=== PATIENT | female | born 1945 | race Caucasian/White ===

== ENCOUNTER → 2018-01-20 | Outpatient (CLI) | payer MEDICARE, BC ==
[~2018-01-20] MED LIST: BUTRANS1 EAC1 TRANSDERM; BUTRANS1 EAC2 TRANSDERM; BUTRANS1 EAC3 TRANSDERM; DULOXETINE HCL60 MG PO; LOSARTAN POTAS100 MG PO; MEDROLDOSEPACK PO; NORVASC5 MG PO; ZANAFLEX2 MG PO; ZANTAC 150MG T150 MG PO; ZOCOR20 MG PO
--- NOTE | 2018-01-22 09:51 | PAINCON ---
[address] [address] PAIN MANAGEMENT CONSULTATION Name: ROC ARMANDO Room: [facility] SITA Church#: [id number] Admission: 01/20/18 Attend Phys: Jessica Leggett Discharge: Date of : 43 Report #: [id number] THIS REPORT FOR: //name// CC: FAM unknown Forrest Marino DATE OF SERVICE: 01/20/2018 The patient is a 72-year-old female being treated for symptomatic lumbar radiculopathy, axial back pain, status post left hip fusion in childhood, requiring complex medication management. 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 Last seen in the pain clinic 09/09/2017, increased her Butrans from 5 to 7.5 mcg. The patient returns to pain clinic today. She speaks primarily Kiswahili, though she understands some. Her speaks a little better Yakut, but they are seen in the company of a case management coordinator. I reviewed that the patient was having improved functional status and pain relief with the increase in Butrans 5-7.5, but still had ongoing pain that was interfering with function. Still ongoing pain in the left hip, which is solidly fused. She has ongoing radicular pain, noting that the caudal injection I had performed 08/12/2017 in retrospect had afforded significant relief and she would like me to repeat an injection to help with the radicular component of pain. PHYSICAL EXAMINATION: Does show 72-year-old female, BMI is 35.7 kilograms per meter squared (4 feet 6 inches, 147 pounds). Blood pressure 142/63, pulse 104, respirations 16. Subjective pain score 7-8 on VAS. Rises from chair using armrest, has an antalgic gait, but again, she has a fused left hip. She does have ongoing lumbar radicular pain in the bilateral legs with some numbness in the left leg down to the foot. Also notes a little subjective paresthesia in the left arm as well, though cervical range of motion is full. She does have diminished patellar and Achilles reflexes on the left. Straight leg raise is nominally positive on left. Diffuse tenderness across the low back. We reviewed the fact that opiate medications are being used to provide analgesia adequate to support activities of daily living, not attempting to achieve a specific pain score on the 0-10 Visual Analog Scale. The current opiate medications are providing sufficient analgesia to allow the patient to participate in activities of daily living. The patient is not exhibiting any aberrant behavior suggestive of drug diversion. The patient is not having any adverse reactions to medications. The patient is not suffering from daytime somnolence or mental acuity changes. The patient is managing opiate-induced constipation with appropriate zwja-avp-bwrvpkg agents and dietary considerations. The patient was counseled on concern for caution with operating a motor vehicle [place] [address] PAIN MANAGEMENT CONSULTATION Name: ROC ARMANDO [facility] [id number] Admission: 01/20/18 Attend Phys: Jessica Leggett Discharge: Date of : 43 Report #: [id number] A physical exam was performed and the patient's functional status was evaluated. All patients with back pain were advised against the bed rest greater than 4 days and were advised to return to normal activities. Pain score assessment was noted and the treatment plan was reviewed with the patient. All current medications, both prescribed and OTC were reviewed and reconciled on the electronic medical record. Tobacco screening was accomplished and smoking cessation was advised when indicated. BMI was noted and diet/exercise modification was recommended for all patients following outside normal parameters. I reviewed with the patient today their responsibilities to safeguard prescription medications, reviewed their responsibility to utilize medications only as prescribed by the physician. They are to seek and receive pain medications only from 1 physician group ( [facility]). They are to use 1 pharmacy and keep the clinic informed if they change pharmacies. Their responsibilities include making followup visits in a timely fashion and to avoid abrupt discontinuation of medication usage. Their responsibilities further include bringing their medications (bottles from the pharmacy with residual pills) to the visit for possible confirmation of pill counts and the patient understands it is their responsibility to submit to random drug screens to ensure both that the medications prescribed are present, and that no other controlled substances are present. All prescriptions provided today were generated electronically. ASSESSMENT: 1. Symptomatic lumbar radiculopathy secondary to spinal stenosis. 2. Chronic axial back pain. 3. Status post left hip fusion in childhood. 4. Status post bilateral total knee arthroplasties. RECOMMENDATION: We will increase Butrans from 7.5 to 10, taken the liberty of writing for 90 day (actually 86 day), 12 Butrans 10 mcg patches). ASSESSMENT: Acute exacerbation of lumbar radiculopathy secondary to spinal stenosis. RECOMMENDATION: Epidural injection under fluoroscopy today at L5-S1. PROCEDURE: Lumbar epidural steroid injection. PROCEDURE NOTE: After both written and informed consent to include risk of spinal cord damage, increased pain, weakness and dural puncture, the patient was taken to the fluoroscopy suite, placed in the prone position. After sterile prep and drape, a skin wheal with lidocaine was raised. A 22-gauge epidural Tuohy needle was inserted in the midline at L5-S1 with good loss to resistance. Negative aspiration for cerebrospinal fluid or blood was noted. Then 1 mL of [facility] [address] [facility] [address] PAIN MANAGEMENT CONSULTATION Name: ROC ARMANDO Room: [facility]#: [id number] Admission: 01/20/18 Attend Phys: Jessica Leggett Discharge: Date of : 43 Report #: [id number] Omnipaque under biplanar fluoroscopy showed good spread within the epidural space. This was followed with 80 mg of triamcinolone plus 1 mL of 1.5% preservative-free Xylocaine, 0.5 mL Xylocaine was then injected to flush the needle; it was removed. The patient was monitored for an appropriate period of time and discharged in good and stable condition. <ELECTRONICALLY SIGNED> By: Forrest Marino DO 01/22/18 0951 [id number] 1925Forrest Marino DO /nt
== END | disposition home or self-care (01) ==
LOC: M.PC 02:28
DX: M54.16 Radiculopathy, lumbar region (principal); M48.061 Spinal stenosis, lumbar region without neurogenic claudication; G89.29 Other chronic pain; Z98.890 Other specified postprocedural states; Z96.653 Presence of artificial knee joint, bilateral; Z79.891 Long term (current) use of opiate analgesic; Z79.899 Other long term (current) drug therapy; Z88.8 Allergy status to other drugs, medicaments and biological substances

== ENCOUNTER → 2018-02-17 | Outpatient (CLI) | payer MEDICARE, BC ==
--- NOTE | 2018-02-18 09:37 | PAINCON ---
[facility] [address] [place] [address] PAIN MANAGEMENT CONSULTATION Name: ROC ARMANDO Room: [facility] SITA Church#: [id number] Admission: 02/17/18 Attend Phys: Jessica Leggett Discharge: Date of : 43 Report #: [id number] THIS REPORT FOR: //name// CC: FAM unknown Forrest Marino DATE OF SERVICE: 02/17/2018 The patient is a delightful 73-year-old female. She speaks primarily Vietnamese. She is seen today in the company of her and a hospice registered nurse. She was last seen in the pain clinic 01/20/2018. We increased her Butrans patch from 7.5 to 10 mcg. I did an epidural injection L5-S1 (she prior had had a caudal epidural injection in 07/2017). Returns to pain clinic today. As we noted, the initial caudal injection afforded only nominal efficacy. Unfortunately, she fell the day after the epidural injection at last visit. She simply fell backwards tripping over her shoe. She did strike her low back. She is unable to tell if she has had much relief with the injection simply because of the increased pain after her fall. She does think that the Butrans patch is working well. She denies any myelopathic symptoms. She has a fused left hip from a childhood surgery. With this, she has a markedly ataxic and antalgic gait. Does have some increased range of motion in the lumbar spine with this gait. Today, she notes subjective pain score is a little bit higher than usual at 8 on VAS, again primarily left low back and in fact "the whole left side of her body." PHYSICAL EXAMINATION: Shows pleasant 4-foot 5-inch, 147-pound female, BMI is approximately 25 kilograms per meter squared. Blood pressure 153/71, pulse 101, respirations are 18, room air oxygen saturation 96%. She is alert and oriented to person, place and time, judged to be a reasonable historian. Rises from chair using armrest, markedly antalgic gait, a little ataxic again due to the frozen left hip. Does have tenderness across the low back. Left leg shows modestly positive straight leg raise. Lower extremity strength is diminished in the left compared to the right, but this is congenital. Diffuse tenderness across the low back. No ecchymosis is noted. ASSESSMENT: Symptomatic lumbar radiculopathy, axial back pain status post fused left hip, chronic pain syndrome requiring complex medication management. RECOMMENDATIONS: Discussion with Mr. Armando and the patient today via the hospice registered nurse. Ultimately, we elected to plan on moving forward with epidural injection at L3-L4 or L4-L5 depending on access at next visit. Pain is a little bit higher in the low back. We will continue Butrans unchanged. Follow up in March for medication renewal, will again think for a 90-day [place] [address] PAIN MANAGEMENT CONSULTATION Name: ROC ARMANDO Jessica Room: [facility] JACOBO Ranjit#: [id number] Admission: 02/17/18 Attend Phys: Jessica Leggett Discharge: Date of : 43 Report #: [id number] consider increasing to a slightly higher Butrans patch at that time if clinically indicated (15 mcg per hour). Discharged in good and stable condition. <ELECTRONICALLY SIGNED> By: Forrest Marino DO 02/18/18 0937 [id number] [id number] Marino DO /nt
== END ==
LOC: M.PC 04:40
DX: M54.16 Radiculopathy, lumbar region (principal); G89.4 Chronic pain syndrome; Z79.899 Other long term (current) drug therapy

== ENCOUNTER → 2018-04-07 | Outpatient (CLI) | payer MEDICARE, BC ==
--- NOTE | 2018-04-08 06:59 | PAINCON ---
[facility] [address] [place] [address] PAIN MANAGEMENT CONSULTATION Name: ROC ARMANDO Room: [facility] SITA Church#: [id number] Admission: 04/07/18 Attend Phys: Jessica Leggett Discharge: Date of : 43 Report #: [id number] THIS REPORT FOR: //name// CC: FAM unknown Forrest Marino The patient is a very pleasant 73-year-old Montenegrin-speaking female being treated for symptomatic lumbar radiculopathy secondary to spinal stenosis. Comorbidities include left hip osteoarthritis affecting bilateral knees. We have tried managing chronic pain with transdermal Butrans patch. I titrated up to 10 mcg with some efficacy, but she is developing a little systemic pruritus. Inspection of the Butrans site is fairly unremarkable. I do not see erythema here. The patient thinks it may be "dry skin." Nonetheless, we have elected to try weaning back to 7.5 mcg patch after 1 more week on the 10 mcg patch. I had prior written a prescription for 90 days (12 Butrans 10 mcg patches). She does have one 7.5 mcg patch left at home. Suggested a trial of 7.5 mcg patch for 1 week. If pain gets worse and/or pruritus is not improved, we will have her go back to 10 mcg patch. If, however, she see some improvement overall, I have taken the liberty of writing for 90 day prescription for Butrans 7.5 mcg patch (#12 distributed), directions 1 every 7 days, obviously a 90-day prescription. The patient has had some incremental relief with epidural injections. Last visit, we talked about repeating epidural injection somewhat above the fairly spondylitic area. Ongoing lumbar radicular pain radiating to the bilateral legs with significant osteoarthritis, we elected to proceed with epidural injection midline at L2-L3. ASSESSMENT: Chronic pain syndrome requiring complex medication management, osteoarthritis affecting left hip and bilateral knees. Medication changes as noted above. PROCEDURE NOTE: Lumbar epidural injection under fluoroscopy. PROCEDURE: Lumbar epidural steroid injection. PROCEDURE NOTE: After both written and informed consent to include risk of spinal cord damage, increased pain, weakness and dural puncture, the patient was taken to the fluoroscopy suite, placed in the prone position. After sterile prep and drape, a skin wheal with lidocaine was raised. A 22-gauge epidural Tuohy needle was inserted in the midline at L2-L3 with good loss to resistance. Negative aspiration for cerebrospinal fluid or blood was noted. Then 1 mL of Omnipaque under biplanar fluoroscopy showed good spread within the epidural space. This was followed with 80 mg of triamcinolone plus 1 mL of 1.5% preservative-free Xylocaine, 0.5 mL Xylocaine was then [place] [address] PAIN MANAGEMENT CONSULTATION Name: ORC ARMANDO Room: [facility] SITA Church#: [id number] Admission: 04/07/18 Attend Phys: Jessica Leggett Discharge: Date of : 43 Report #: [id number] needle; it was removed. The patient was monitored for an appropriate period of time and discharged in good and stable condition. <ELECTRONICALLY SIGNED> By: Forrest Marino DO 04/08/18 0659 1246 [id number] Sum[facility] Countyefrain Marino DO /nt
== END | disposition home or self-care (01) ==
LOC: M.PC 00:34
DX: M54.16 Radiculopathy, lumbar region (principal); G89.4 Chronic pain syndrome; M16.12 Unilateral primary osteoarthritis, left hip; M17.0 Bilateral primary osteoarthritis of knee; Z79.891 Long term (current) use of opiate analgesic; Z98.890 Other specified postprocedural states; Z88.8 Allergy status to other drugs, medicaments and biological substances; Z79.899 Other long term (current) drug therapy

== ENCOUNTER → 2018-05-05 | Outpatient (CLI) | payer MEDICARE, BC ==
--- NOTE | 2018-05-06 07:04 | PAINCON ---
[address] [address] PAIN MANAGEMENT CONSULTATION Name: ROC ARMANDO Room: [facility] Ranjit#: [id number] Admission: 05/05/18 Attend Phys: Jessica Leggett Discharge: Date of : 43 Report #: [id number] THIS REPORT FOR: //name// CC: FAM unknown Forrest Marino The patient is a very pleasant 73-year-old female, seen in pain clinic for axial back pain, lumbar radiculopathy secondary to spinal stenosis, osteoarthritis affecting left hip, bilateral knees. She requires complex medication management. She was seen in pain clinic today. She is seen in the company of her who is supportive and a fiber optics technician. We trialed the Butrans patch at 7.5 mcg, however, was not as effective as a 10 mcg patch. The 10 mcg patch may have exacerbated some mild sedation, but she feels overall she is more functional with the higher dose. Epidural injections were only nominally helpful, in fact last injection at L2-L3 did exacerbate pain for about 24 hours. Currently, she notes subjective pain score as a 3-5 on a VAS. Pain in low back, left side, left knee and primarily entire axial back. PHYSICAL EXAMINATION: GENERAL: Shows a petite 73-year-old female, 4 feet 5 inches tall, 141 pounds, BMI 35 kilograms per meter squared. VITAL SIGNS: Blood pressure 141/88, pulse 102, respirations 18. NEUROLOGIC: She is alert and oriented to person, place and time, judged to be a reasonable historian. Markedly antalgic gait secondary to a surgically fused hip. Diffuse axial tenderness across the low back. LOWER EXTREMITIES: Strength is diminished, but symmetric. Pain in bilateral knees. Does have some osseous hypertrophy in the knees. We reviewed the fact that opiate medications are being used to provide analgesia adequate to support activities of daily living, not attempting to achieve a specific pain score on the 0-10 Visual Analog Scale. The current opiate medications are providing sufficient analgesia to allow the patient to participate in activities of daily living. The patient is not exhibiting any aberrant behavior suggestive of drug diversion. The patient is not having any adverse reactions to medications. The patient is not suffering from daytime somnolence or mental acuity changes. The patient is managing opiate-induced constipation with appropriate ihal-dgo-holbtwh agents and dietary considerations. The patient was counseled on concern for caution with operating a motor vehicle while using opiate medications. A physical exam was performed and the patient's functional status was evaluated. All patients with back pain were advised against the bed rest greater than 4 days and were advised to return to normal activities. Pain score assessment was noted and the treatment plan was reviewed with the patient. All current medications, both prescribed and OTC [place] [address] PAIN MANAGEMENT CONSULTATION Name: ROC ARMANDO [facility] [id number] Admission: 05/05/18 Attend Phys: Jessica Leggett Discharge: Date of : 43 Report #: [id number] electronic medical record. Tobacco screening was accomplished and smoking cessation was advised when indicated. BMI was noted and diet/exercise modification was recommended for all patients following outside normal parameters. I reviewed with the patient today their responsibilities to safeguard prescription medications, reviewed their responsibility to utilize medications only as prescribed by the physician. They are to seek and receive pain medications only from 1 physician group ( [facility]). They are to use 1 pharmacy and keep the clinic informed if they change pharmacies. Their responsibilities include making followup visits in a timely fashion and to avoid abrupt discontinuation of medication usage. Their responsibilities further include bringing their medications (bottles from the pharmacy with residual pills) to the visit for possible confirmation of pill counts and the patient understands it is their responsibility to submit to random drug screens to ensure both that the medications prescribed are present, and that no other controlled substances are present. All prescriptions provided today were generated electronically. ASSESSMENT: Symptomatic chronic axial back pain, history of osteoarthritis affecting left hip, bilateral knees requiring complex medication management. Comorbidity of lumbar spinal stenosis. RECOMMENDATIONS: After discussion with the patient and her via the assembly riveter, we have elected to increase patch back to 10 mcg q.7 days. I have taken the liberty of writing for 12 patches which should equate to 90 (86) day prescription. Follow up in 3 months for reevaluation, earlier if needed. <ELECTRONICALLY SIGNED> By: Forrest Marino DO 05/06/18 0704 1408 [id number] Marino DO /nt
== END ==
LOC: M.PC 04:36
DX: M48.061 Spinal stenosis, lumbar region without neurogenic claudication (principal); M54.16 Radiculopathy, lumbar region; M17.0 Bilateral primary osteoarthritis of knee; M16.12 Unilateral primary osteoarthritis, left hip; Z79.899 Other long term (current) drug therapy

== ENCOUNTER → 2018-06-10 | Outpatient (CLI) | payer MEDICARE, BC ==
--- NOTE | 2018-07-02 17:38 | PAINCON ---
[address] [place] [address] PAIN MANAGEMENT CONSULTATION Name: ROC ARMANDO Room: [facility] SITA Church#: [id number] Admission: 06/10/18 Attend Phys: Anant Blair MD Discharge: Date of : 43 Report #: [id number] THIS REPORT FOR: //name// CC: Anant Siddiqi DATE OF SERVICE: 06/10/2018 The patient does not have a family physician. FOLLOWUP HISTORY: The patient is a 73-year-old female who has been followed in the pain clinic by Dr. Forrest Marino. This is my first visit with the patient. She has complaints of low back pain. The patient states that she did fall on her right knee about 2 weeks ago. She also has some left hip and left knee pain. Left foot is sore as well. She has been very active. She does have some cervical problems as well. The patient has been using Butrans patch, which she feels helps. Rates her pain as 6-7/10. The patient states that she has difficulty taking nonsteroidal anti-inflammatory medications. She has had some GI problems with infections in her stomach. Feels that her pain has been less problematic after injections in the past. At this juncture, she would like to have her medications renewed. She is accompanied by her . There is a lift operator present. She feels that overall use of her current medication is helpful. Epidural injections in the past have been nominally helpful. ALLERGIES: RELAFEN CAUSED HALLUCINATIONS AND TRAMADOL CAUSED VERTIGO. CURRENT MEDICATIONS: Norvasc 5 mg, buprenorphine/Butrans transdermal patch, duloxetine 60 mg, losartan 100 mg, Zantac 150 mg, and Zocor 20 mg. PAST MEDICAL HISTORY: 1. Hypertension. 2. Depression. 3. Lumbar radiculopathy. 4. Component of left sciatic mediated pain. 5. Left hip. 6. Complex medical management. 7. Carpal tunnel syndrome. 8. Degenerative joint disease. 9. Fusion of the joint. 10. GERD. 11. Hyperlipidemia. 12. Prediabetes. 13. Spondylolisthesis. PAST SURGICAL HISTORY: Appendectomy, carpal tunnel release, hip [place], [place] [address] PAIN MANAGEMENT CONSULTATION Name: ROC ARMANDO Room: [facility]#: [id number] Admission: 06/10/18 Attend Phys: Anant Blair MD Discharge: Date of : 43 Report #: [id number] knee replacement, and right nose surgery. REVIEW OF SYSTEMS: Fatigue, weakness, weight change, wears glasses, hearing loss, ringing in the ears, chronic sinus problems, mouth sores, chest pain, angina, shortness of breath when lying flat, loss of appetite, frequent urination, varicose veins, frequent recurrent headaches, lightheadedness, dizziness, numbness, tingling, memory loss, confusion, depression, and anemia. LABORATORY DATA: No new laboratory values are available at the time of our interview. PAIN CLINIC ASSESSMENT: 1. History of osteoarthritis. The patient has had knee replacements, has had some back arthritic changes. 2. Height 5 feet 4 inches. Weight 143 pounds, BMI is 35. 3. Vital signs: Blood pressure 150/57, heart rate 100, respiratory rate 16, room air saturation 97%, and temperature 98.7. 4. Pain intensity /10. 5. Fall risk. The patient did fall about two weeks ago. It was felt that her right knee gave way. 6. Blood thinner. The patient is not on a blood thinning medication. 7. Hypertension. The patient is being treated for hypertension. 8. Opioid therapy greater than 6 weeks. The patient has been receiving medications in the pain clinic. 9. Risk assessment tool. 10. Functional assessment tool. 11. Recreational drug use. 12. Tobacco: The patient denies use of tobacco. 13. Alcohol: The patient denies frequent use of alcoholic beverages. PHYSICAL EXAMINATION: GENERAL: The patient is a well-developed, well-nourished female. She speaks Mohawk. Her is present. A strategic planning specialist is present. HEENT: Normocephalic, atraumatic. Extraocular eye muscles intact. Sclerae nonicteric. Mucous membranes moist. NECK: Good range of motion. MUSCULOSKELETAL: Upper extremity muscle strength is judged to be 4+/5 for the major muscle groups in the upper extremity. The patient has bilateral knee replacements. Notes some pain and discomfort in her left hip, knees, and foot. Status post fall. IMPRESSION: 1. Pain in right knee and low back pain. 2 Hypertension. 3. Depression. 4. [place] [address] PAIN MANAGEMENT CONSULTATION Name: ROC ARMANDO Room: [facility] SITA Church#: [id number] Admission: 06/10/18 Attend Phys: Anant Blair MD Discharge: Date of : 43 Report #: [id number] 5. Component of left sciatic mediated pain. 6. Left hip. 7. Complex medical management. 8. Carpal tunnel syndrome. 9. Degenerative joint disease. 10. Fusion of the joint. 11. Gastroesophageal reflux disease. 12. Hyperlipidemia. 13. Prediabetes. 14. Spondylolisthesis. RECOMMENDATIONS: We discussed treatment options with the patient through her healthcare interpreter. At this juncture, we will continue with her current medical regimen of tizanidine 2 mg p.o. b.i.d. p.r.n., Butrans patch applied every 7 days. The patient will return to the pain clinic as needed. We would like to thank you for letting us participate in her care. We hope she continues to improve. <ELECTRONICALLY SIGNED> By: Anant Blair MD 07/02/18 1738 [id number] [id number]. Armando Blair MD /nt
== END ==
LOC: M.PC 06-03 11:00
DX: M54.16 Radiculopathy, lumbar region (principal); M43.16 Spondylolisthesis, lumbar region; K21.9 Gastro-esophageal reflux disease without esophagitis; E78.5 Hyperlipidemia, unspecified; I10 Essential (primary) hypertension; R73.03 Prediabetes; M25.551 Pain in right hip; F32.9 Major depressive disorder, single episode, unspecified; Z79.899 Other long term (current) drug therapy

== ENCOUNTER → 2018-07-06 | Outpatient (CLI) | payer MEDICARE, BC ==
--- NOTE | 2018-08-09 10:00 | PAINCON ---
[facility] [address] [place] [address] PAIN MANAGEMENT CONSULTATION Name: ROC ARMANDO Room: [facility] SITA AltamiranoBrittaney#: [id number] Admission: 07/06/18 Attend Phys: Anant Blair MD Discharge: Date of : 43 Report #: [id number] THIS REPORT FOR: //name// CC: Anant Siddiqi DATE OF SERVICE: 07/06/2018 CHIEF COMPLAINT: Low back and right knee pain. HISTORY OF PRESENT ILLNESS: The patient is a 73-year-old female who has been followed in the pain clinic. She suffers from chronic low back pain. Also, has had pain in her right knee. She fell a number of weeks ago. She has some pain in her left hip and left knee. Notes that the patient's pain has worsened with the cooler weather. Pain increases as with changes in the weather. She has not fallen in the past month. She does sometimes feel dizzy. She can find that tizanidine is helpful. She takes this medication at night. Feels that there might be a component of dizziness associated with it. Rates her pain as a 6/10. Also, has "pain all over." Overall, feels that her medications are helpful and would like to continue their use. ALLERGIES: RELAFEN CAUSED HALLUCINATIONS AND TRAMADOL CAUSED VERTIGO. PAIN CLINIC ASSESSMENT: 1. History of osteoarthritis. The patient has had knee replacements and has back arthritic changes. 2. Height 5 feet 4 inches, weight 145 pounds, BMI is 36.3. 3. Vital signs: Blood pressure 133/76, heart rate 103, respiratory rate 16, room air saturation 95%, temperature 98.1. 4. Pain score 6/10. 5. Fall risk. The patient has not fallen in the last month. She did fall about a month and a half ago. At that time, she felt like her knee gave way on the right side. The patient uses a walker to ambulate with. 6. Blood thinner. The patient is not on a blood thinning medication. 7. Hypertension. The patient is being treated for hypertension. 8. Opioid therapy greater than 6 weeks. 9. Medications. The patient is receiving medications through the pain clinic. 10. Risk assessment tool. 11. Functional assessment tool. 12. Recreational drug use. The patient denies use of recreational drugs. 13. Tobacco: The patient denies use of tobacco. 14. Alcohol: The patient denies frequent use of alcoholic beverages. PHYSICAL EXAMINATION: GENERAL: The patient is a well-developed, well-nourished female. She speaks primarily Sinhala. She is accompanied by her [place] [address] PAIN MANAGEMENT CONSULTATION Name: ROC ARMANDO Room: [facility] Ranjit#: [id number] Admission: 07/06/18 Attend Phys: Anant Blair MD Discharge: Date of : 43 Report #: [id number] present and translates for us. HEENT: Normocephalic, atraumatic. Extraocular eye muscles intact. Sclerae nonicteric. Mucous membranes are moist. NECK: Reasonable range of motion. MUSCULOSKELETAL: Upper strength judged to be 4+/5 for the major muscle groups in the upper extremity. The patient has bilateral knee replacements. Complains of some pain and discomfort in the left hip, knee and down into her feet. Has some complaint of general global pain as well. IMPRESSION: 1. Chronic right knee pain and low back pain. 2. Hypertension. 3. Depression. 4. Lumbar radiculopathy. 5. Component of left sciatic mediated pain. 6. Left hip pain. 7. Complex medical management using opioid medications. 8. Carpal tunnel syndrome. 9. Degenerative joint disease. 10. Fusion of joint. 11. Gastroesophageal reflux. 12. Hyperlipidemia. 13. Prediabetes. 14. Spondylolisthesis. RECOMMENDATIONS: We discussed treatment options with the patient. She did feel that the tizanidine may be causing a little bit of dizziness. At this juncture, we will consider Parafon Forte. Hopefully, she will find this medication is helpful and have less of the side effects. We will continue with Butrans 10 mcg q. 7 days as well as the muscle relaxant, Parafon Forte. The patient feels that spasms are a considerable portion of her discomfort at this point. She will call us if she has any problems with her medications. We would like to thank you for letting us participate in her care. A script for Parafon Forte 500 mg 1 p.o. b.i.d. has been written. The patient will also continue with Butrans 10 mcg q. 7 days, transcutaneous patch. <ELECTRONICALLY SIGNED> By: Anant Blair MD 08/09/18 [id number]. Armando Blair MD /nt
== END ==
LOC: M.PC 04:48
DX: M54.16 Radiculopathy, lumbar region (principal); I10 Essential (primary) hypertension; K21.9 Gastro-esophageal reflux disease without esophagitis; E78.5 Hyperlipidemia, unspecified; M19.90 Unspecified osteoarthritis, unspecified site; M43.10 Spondylolisthesis, site unspecified; M25.552 Pain in left hip; G89.29 Other chronic pain; F32.9 Major depressive disorder, single episode, unspecified; R73.03 Prediabetes; Z79.899 Other long term (current) drug therapy

== ENCOUNTER → 2018-09-09 | Outpatient (CLI) | payer MEDICARE, BC ==
--- NOTE | ~2018-09-09 | PAINCON ---
[facility] [address] [place] [address] PAIN MANAGEMENT CONSULTATION Name: ROC ARMANDO Room: [facility] SITA AndreaVictoria#: [id number] Admission: 09/09/18 Attend Phys: Anant Blair MD Discharge: Date of : 43 Report #: [id number] THIS REPORT FOR: //name// CC: Anant Siddiqi DATE OF SERVICE: 09/09/2018 CHIEF COMPLAINT: Low back and leg pain. HISTORY OF PRESENT ILLNESS: The patient is a 73-year-old female. She speaks little Bahamian. She has had an quarry boss present. Her is present as well. Complaining of low back pain as well as knee pain. The patient also has pain in her hips. The patient is a 73-year-old female who has been followed in the Pain Clinic. She suffers from chronic pain in her low back area. She states that she has had portions of her hips removed. She has limited range of motion in her hips. She has some knee pain. She is noting pain, which is quite problematic and rates it as a 7/10. Does continue to ambulate with use of a walker. Finds that her medications help her to stay active. She and her are considering going to [place]. At this juncture, she would like to consider an injection to the low back area to see whether or not this would be helpful. She feels that her pain overall is about 25% controlled with her current pain regimen of Butrans 10 mcg and tizanidine for muscle spasms. ALLERGIES: RELAFEN CAUSED HALLUCINATIONS AND TRAMADOL CAUSED VERTIGO. PAIN CLINIC ASSESSMENT/PQRS: 1. History of osteoarthritis. The patient has some osteoarthritic changes involving her knees and has had back and arthritic changes in her hips. 2. Height 5 feet 1 inch, weight 139 pounds, BMI is 35.0. 3. Blood pressure 147/67, heart rate 106, respiratory rate 16, room air saturation 96%, temperature 98.0. 4. Pain intensity 05/04. 5. Fall risk. The patient has not fallen in the last 3 months. She does walk with use of a walker. 6. Blood thinner. The patient is not on blood thinning medication. 7. Hypertension. The patient is being treated for hypertension. 8. Opioids greater than 6 weeks. [facility] 9. Risk assessment tool. 10. Functional assessment tool. 11. Recreational drug use. The patient denies use of recreational drugs. 12. Tobacco: The patient [place] [address] PAIN MANAGEMENT CONSULTATION Name: ROC ARMANDO Room: [facility]#: [id number] Admission: 09/09/18 Attend Phys: Anant Blair MD Discharge: Date of : 43 Report #: [id number] 13. Alcohol. The patient denies frequent use of alcoholic beverages. PHYSICAL EXAMINATION: GENERAL: The patient is a well-developed female. She is alert and oriented x 3. Affect is appropriate. Speech is fluent with Bahamian. Notes some broken Bahamian. Micro Computer Specialist is present. HEENT: Normocephalic, atraumatic. Extraocular eye muscles intact. Sclerae is nonicteric. Mucous membranes are moist. The patient has glasses on. NECK: Without adenopathy or JVD. MUSCULOSKELETAL: Strength is judged to be 4/5 for the major muscle groups in the upper extremity. The patient has bilateral knee replacements. Has very little mobilization of her knees for flexion, extension or movement of her knees. Complains bitterly when her hips are moved and the patient has some difficulty sitting in an upright position without her leg somewhat extended secondary to poor rotation of her hips. IMPRESSION: 1. Chronic knee pain and back pain. 2. Hypertension. 3. Depression. 4. Lumbar radiculopathy. 5. Component of left sciatic-mediated pain. 6. Left hip pain. 7. Complex medical management using opioid medications. 8. Carpal tunnel syndrome. 9. Degenerative joint disease. 10. 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 11. Gastroesophageal reflux. 12. Hyperlipidemia. 13. Prediabetes. 14. Spondylolisthesis. RECOMMENDATIONS: We discussed treatment options with the patient and her with the quarry boss. The patient is having pain and discomfort in the lower portion of her back. Palpation in the low back area can reproduce trigger point areas. Light pressure causes the patient to grimace and vocalize. She has pain and discomfort in the low back area near the left and right posterior superior iliac crests/spines. She would like to proceed with an injection in this area. PROCEDURE NOTE: We discussed treatment with the patient as well as with her . They both agreed to the procedure. Possible risks could include but are not limited to infection, worsening of pain, no improvement in pain, nerve damage and the patient elects to proceed. PROCEDURE NOTE: The patient was placed in the left lateral decubitus position. [address] [address] PAIN MANAGEMENT CONSULTATION Name: ROC ARMANDO Room: [facility] SITA Church#: [id number] Admission: 09/09/18 Attend Phys: Anant Blair MD Discharge: Date of : 43 Report #: [id number] The right posterior superior iliac spine area near the gluteus jacob and latissimus dorsi was palpated. The patient states this reproduced her discomfort. A 25-gauge needle was then advanced into the area. The patient states that this did reproduce her discomfort. Aspiration was negative. A total of 40 mg Depo-Medrol was injected on the left side with 6 mL of 0.5% bupivacaine and the left posterior superior iliac spine area was palpated. A trigger point was noted in the area of the gluteus jacob and latissimus dorsi. The trigger point was noted. A 25-gauge needle was then advanced into the area. A total of 6 mL of 0.5% bupivacaine with 40 mg triamcinolone was injected. The patient tolerated the procedure well. She will follow up in the future as needed. We have given the patient a Medrol Dosepak to take in the interim. Should her pain become quite problematic, she will take this and hopefully decrease some of her pain and discomfort until she is able to return to [place]. We would like to thank you for letting us participate in her care. We hope she continues to improve. By: [id number]. Armando Blair MD /negin
== END | disposition home or self-care (01) ==
LOC: M.PC 05:37
DX: M79.18 Myalgia, other site (principal); M54.5 Low back pain; M25.561 Pain in right knee; M25.562 Pain in left knee; G89.29 Other chronic pain; I10 Essential (primary) hypertension; M54.16 Radiculopathy, lumbar region; F32.89 Other specified depressive episodes; M25.552 Pain in left hip; M19.90 Unspecified osteoarthritis, unspecified site; K21.9 Gastro-esophageal reflux disease without esophagitis; E78.5 Hyperlipidemia, unspecified; Z98.890 Other specified postprocedural states; Z79.891 Long term (current) use of opiate analgesic; Z88.8 Allergy status to other drugs, medicaments and biological substances; Z79.899 Other long term (current) drug therapy

== ENCOUNTER → 2018-12-28 | Outpatient (CLI) | payer MEDICARE, OTHER ==
[~2018-12-28] MED LIST changes: +NEURONTIN100 MG PO
--- NOTE | ~2018-12-28 | PAINCON ---
[facility] [address] [place] [address] PAIN MANAGEMENT CONSULTATION Name: ROC ARMANDO Room: [facility] SITA AndreaBrittaneyCesiaBrittaney#: [id number] Admission: 12/28/18 Attend Phys: Anant Blair MD Discharge: Date of : 43 Report #: [id number] THIS REPORT FOR: //name// CC: Anant Siddiqi MD DATE OF SERVICE: 12/28/2018 CHIEF COMPLAINT: Low back pain and right knee pain. HISTORY OF PRESENT ILLNESS: The patient is a 73-year-old female who speaks primarily Solomon Islander. She is accompanied by her and an television repairer. The patient states that she is having pain in the lower portion of her back. She underwent trigger point injections in the past. Noticed that these were helpful. She feels that she would like to have these areas injected again today. Rates her pain a 7/10. We would like to have some medication changes to help control her pain. She is no longer using tizanidine. It was felt that the medication was making her dizzy. ALLERGIES: RELAFEN CAUSED HALLUCINATIONS AND TRAMADOL CAUSED VERTIGO. THE PATIENT FEELS THAT TIZANIDINE CAUSE HER TO BE DIZZY. CURRENT MEDICATIONS: Amlodipine 5 mg, Butrans 10 mg, Duloxetine 60 mg, losartan 100 mg, Zantac 150 mg, Zocor 20 mg, tizanidine has been stopped secondary to making the patient feel as though she was dizzy. PAIN CLINIC ASSESSMENT/PQRS: 1. History of osteoarthritis. The patient has some osteoarthritic changes involving her knees, back and in her hips. 2. Height 5 feet 1 inch, weight 139 pounds, BMI is 35. 3. Blood thinner. The patient is not on a blood thinning medication. 4. Fall history: The patient has not fallen in the last 3 months. She walks with use of a walker. 5. Hypertension. The patient is being treated for hypertension. 6. Opioids greater than 6 weeks. The patient receives medications from one source, the Pain Clinic. 7. Risk assessment tool, low for opioid use. 8. Functional assessment tool. 9. Recreational drug use. The patient denies use of recreational drugs. 10. Tobacco: The patient denies use of tobacco. 11. Alcohol: The patient denies use of alcoholic beverages. PHYSICAL EXAMINATION: GENERAL: The patient is a well-developed, well-nourished female. She is alert and oriented x 3. Her affect is appropriate. Speech is ____. [place] [address] PAIN MANAGEMENT CONSULTATION Name: ROC ARMANDO Room: [facility]#: [id number] Admission: 12/28/18 Attend Phys: Anant Blair MD Discharge: Date of : 43 Report #: [id number] HEENT: Normocephalic and atraumatic. Sclerae nonicteric. Mucous membranes are moist. The patient is wearing glasses. A casing tier is present. Her is present. NECK: Without adenopathy or JVD. MUSCULOSKELETAL: Judged to be 4/5 for the major muscle groups in the upper extremity. The patient has bilateral knee replacements. Has very little mobility. Has significant rigidity. Placing the patient on the bed in the sitting position is quite difficult. The patient was placed in the bed in a supine position. Palpation in the left and right posterior superior iliac spine areas reproduce pain and discomfort in the patient's back. She feels that she would like to proceed with a trigger point injection to the affected areas. Has poor rotation of her hips. IMPRESSION: 1. Chronic knee pain and back pain. 2. Hypertension. 3. Depression. 4. Lumbar radiculopathy. 5. Component of left sciatic pain. 6. Left hip pain. 7. Complex medical management with opioid medication. 8. Carpal tunnel syndrome. 9. Degenerative joint disease. 10. Fusion of the joints and hips. 11. Gastroesophageal reflux. 12. Hyperlipidemia. 13. Prediabetes. 14. Spondylolisthesis RECOMMENDATIONS: We discussed treatment options with the patient and her with the help of the television repairer. The risks and benefits of injection, which could include, but are not limited to infection, worsening pain, nerve damage, bleeding were discussed and the patient feels that the injections in the past were beneficial and would like to proceed with trigger point injections today. PROCEDURE NOTE: The patient was assisted in getting on the examination table. Initially sitting the patient in the sitting position was difficult. She cannot bend her hips enough to sit comfortably. The patient was placed in the right lateral decubitus position. Her back was sterilely prepped with a chlorhexidine solution and allowed to dry. Palpation reproduced pain and discomfort in the left posterior superior iliac spine area near the latissimus dorsi. Aspiration was negative. A total of 40 mg triamcinolone with 8 mL 0.5% bupivacaine was injected on the left side. The right side was treated in a like manner. At this second trigger point, 0.25% bupivacaine was infiltrated into this area. At the posterior superior iliac spine near the gluteus [place] [address] PAIN MANAGEMENT CONSULTATION Name: ROC ARMANDO Room: [facility]#: [id number] Admission: 12/28/18 Attend Phys: Anant Blair MD Discharge: Date of : 43 Report #: [id number] dorsi, trigger point was noted. Aspiration was negative. Total of 8 mL of 0.5% bupivacaine and 40 mg triamcinolone was injected. The patient tolerated the procedure well. There were no complications. She remained in the Pain Clinic for an appropriate amount of time. She will follow up in the future as needed. We will consider at the next visit possibility of increasing her BuSpar, Butrans from 10 mg to 15 mg should her pain continue to be problematic. We have added another medication. She will try a low dose of gabapentin 100 mg at bedtime. She will try this medication and note its efficacy. She will call us if she has any problems or complaints. We would like to thank you for letting us participate in her care. We hope she continues to improve. By: [id number]. Armando Blair MD /nt
== END | disposition home or self-care (01) ==
LOC: M.PC 12-02 10:00
DX: M79.18 Myalgia, other site (principal); M54.5 Low back pain; M25.569 Pain in unspecified knee; M51.16 Intervertebral disc disorders with radiculopathy, lumbar region; M19.90 Unspecified osteoarthritis, unspecified site; K21.9 Gastro-esophageal reflux disease without esophagitis; E78.5 Hyperlipidemia, unspecified; F32.9 Major depressive disorder, single episode, unspecified; Z79.899 Other long term (current) drug therapy; Z88.8 Allergy status to other drugs, medicaments and biological substances; I10 Essential (primary) hypertension

== ENCOUNTER → 2019-03-29 | Outpatient (CLI) | payer MEDICARE, OTHER ==
[~2019-03-29] MED LIST changes: +GABAPENTIN 100100 MG PO; +VOLTAREN100 GM TRANSDERM
--- NOTE | ~2019-03-29 | PAINCON ---
[address] [address] PAIN MANAGEMENT CONSULTATION Name: ROC ARMANDO Room: [facility] SITA AltamiranoBrittaney#: [id number] Admission: 03/29/19 Attend Phys: Anant Blair MD Discharge: Date of : 43 Report #: [id number] THIS REPORT FOR: //name// CC: Anant Siddiqi DATE OF SERVICE: 03/29/2019 CHIEF COMPLAINT: Pain in the low back area as well as in the left arm. HISTORY: The patient is a 74-year-old female. She has an interpreter for the deaf with her. Her is also present. The patient complains of pain and discomfort in the lower portion of her back as well as pain in the left shoulder. She is limited in her ability to lift her left arm above the horizon. Notes that there is significant pain and discomfort with this. Also, has pain in the lower portion of her back in the left posterior hip area. She has gleaned benefits from trigger point injections in the past. She has returned today with a hope of undergoing trigger point injections as well as having a renewal of her medications. She feels that these medications are helpful. She is not having any untoward reactions. Does find sometimes that use of muscle relaxants can cause her to be somewhat tired and sleepy. ALLERGIES: RELAFEN CAUSES HALLUCINATIONS AND TRAMADOL CAUSE VERTIGO, the patient feels that TIZANIDINE caused her to be somewhat dizzy. CURRENT MEDICATIONS: Amlodipine 5 mg, Butrans 15 mg, duloxetine 60 mg, losartan 100 mg, Zantac 150 mg, Zocor 20 mg, tizanidine was used in the past, stopped secondary to dizziness. PAIN CLINIC ASSESSMENT/PQRS: 1. History of osteoarthritis. The patient does have some osteoarthritic changes involving her knee, back and her hip. 2. Height 5 feet 4 inches, weight 145 pounds, BMI is 35. 3. Blood pressure 148/57, heart rate 109, respiratory rate 16, room air saturation 96%, temperature 98.3. 4. Pain intensity 08/04. 5. Fall history: The patient has not fallen in the last 3 months. She does use and ambulate with a rolling walker. 6. Hypertension. The patient is being treated for hypertension. 7. Opiates greater than 6 weeks. The patient receives her medications through the pain clinic. 8. Risk assessment tool: Low for opioid use. 9. Functional assessment tool. 10. Recreational drug use. The patient denies use of recreational drugs. 11. Tobacco: The patient denies use of tobacco. 12. Alcohol. The patient denies use [place] [address] PAIN MANAGEMENT CONSULTATION Name: ROC ARMANDO [facility] [id number] Admission: 03/29/19 Attend Phys: Anant Blair MD Discharge: Date of : 43 Report #: [id number] PHYSICAL EXAMINATION: GENERAL: The patient is a well-developed, well-nourished female. She is accompanied by her as well as the interpreter for the deaf. HEENT: Normocephalic, atraumatic. Extraocular eye muscles intact. Sclerae nonicteric. The patient is wearing glasses. Verification Lead was present. is present. NECK: Without adenopathy or JVD somewhat limited neck movement. MUSCULOSKELETAL: The patient's muscle strength is judged to be 4/5 for the major muscle groups of the right upper extremity. The patient has muscle strength of 3+/5 for the left arm. She is unable to lift this arm higher than parallel with horizon. The patient also has difficulty moving. She has a significant amount of rigidity. The patient has some pain and discomfort in the left hip area. States that in the posterior portion, there is some pain and discomfort. The patient has pain in the left arm. IMPRESSION: 1. Chronic knee pain and back pain. 2. Hypertension. 3. Depression. 4. Lumbar radiculopathy. 5. Component of left sciatic pain. 6. Left hip pain. 7. Complex medical management with opioid medication. 8. Carpal tunnel syndrome, history. 9. Degenerative joint disease. 10. Fusion of the joints and the hip. 11. Gastroesophageal reflux. 12. Hyperlipidemia. 13. Prediabetes. 14. Spondylolisthesis. RECOMMENDATIONS: We discussed treatment options with the patient, interpreter for the deaf and her . The patient elects to have an injection in the left deltoid area. Feels that this is component of her pain that is limiting her ability to raise her arm above horizontal. Also, has pain and discomfort in the left hip area. Palpation in the left low back area near the posterior superior iliac spine area does cause a reproduction of pain and discomfort and the patient ____ as a result of discomfort during palpation in this area. She agrees to injection to both of these two trigger points. PROCEDURE NOTE: The patient was placed in the right lateral decubitus position. The left hip was then sterilely prepped with a Betadine solution. Palpation near the area of the posterior superior iliac spine near the gluteus jacob and latissimus dorsi were identified. A 0.5% bupivacaine and 40 mg Depo-Medrol was injected into this trigger point. The patient tolerated the procedure well. [facility] [address] [place] [address] PAIN MANAGEMENT CONSULTATION Name: ROC ARMANDO Room: [facility] SITA AltamiranoBrittaney#: [id number] Admission: 03/29/19 Attend Phys: Anant Blair MD Discharge: Date of : 43 Report #: [id number] The patient was then positioned and the left shoulder area was palpated. Trigger point was noted in the left deltoid area near the lateral side. The patient indicated this did reproduce her discomfort. A 25-gauge needle was then placed. Aspiration did not reveal blood. The patient did not complain of any nerve pain or discomfort. A total of 5 mL of 0.5% bupivacaine and 40 mg Depo-Medrol was injected. The patient tolerated the procedure well. She remained in the Pain Clinic for an appropriate amount of time. RECOMMENDATIONS: We discussed the options with medications. We will continue with, we will continue with buprenorphine/Butrans 15 mg 1 patch every 7 days. The patient will also continue with diclofenac, Voltaren gel to apply to the affected area. She feels that this is in the upper shoulder area can be helpful. We have also discussed the use of Neurontin 100 mg 1 p.o. t.i.d. Note its efficacy. The patient will continue with tizanidine 2 mg 1 p.o. b.i.d. to help with muscle spasms. We would like to thank you for letting us participate in her care. We hope she continues to improve. By: Jessica: 03/29/19 [id number]. Armando Blair MD /negin
== END | disposition home or self-care (01) ==
LOC: M.PC 05:11
DX: M79.18 Myalgia, other site (principal); M25.552 Pain in left hip; M25.512 Pain in left shoulder; M54.16 Radiculopathy, lumbar region; M19.90 Unspecified osteoarthritis, unspecified site; M25.569 Pain in unspecified knee; I10 Essential (primary) hypertension; F32.9 Major depressive disorder, single episode, unspecified; E78.5 Hyperlipidemia, unspecified; K21.9 Gastro-esophageal reflux disease without esophagitis; Z98.890 Other specified postprocedural states; Z79.899 Other long term (current) drug therapy; Z88.8 Allergy status to other drugs, medicaments and biological substances

== ENCOUNTER → 2019-06-21 | Outpatient (CLI) | payer MEDICARE, OTHER ==
[~2019-06-21] MED LIST changes: +VOLTAREN GEL 1100 G2 TOP
--- NOTE | ~2019-06-21 | PAINCON ---
[facility] [address] [place] [address] PAIN MANAGEMENT CONSULTATION Name: ROC ARMANDO Room: [facility] SITA AndreaVictoria#: [id number] Admission: 06/21/19 Attend Phys: Anant Blair MD Discharge: Date of : 41 Report #: [id number] THIS REPORT FOR: //name// CC: Anant Siddiqi DATE OF SERVICE: 06/21/2019 CHIEF COMPLAINT: Left shoulder and low back pain. HISTORY: The patient is a 74-year-old female who has been followed in the pain clinic because of chronic pain. She feels that injections in the past have been helpful. She returns today with a desire to have her medications renewed as well as undergo injections in the low back area, which has been helpful as well as in the left shoulder area, which is sore and uncomfortable. She has not had any complications with her medications. She has been using Butrans 50 mcg. Her has not noticed a significant improvement in her pain, but did notice an increase in cough. They would like to decrease the Butrans to 15 mcg per hour. She would like to have an injection in the low back area. We have discussed her condition with the facilitation of an seismic interpreter. Question has been sought and answered. The patient would like to proceed with injections in the low back area as well as in the left shoulder area. She has had no complication from these procedures in the past. She has some generalized all over pain. ALLERGIES: RELAFEN CAUSED HALLUCINATIONS AND TRAMADOL CAUSED VERTIGO. The patient feels that TIZANIDINE cause her to be somewhat dizzy. CURRENT MEDICATIONS: Amlodipine 5 mg, Butrans 15 mg, duloxetine 60 mg, losartan 100 mg, Zanaflex 150 mg, Zocor 20 mg, tizanidine has been used in the past, stopped secondary to dizziness. PAIN CLINIC ASSESSMENT AND PQRS: 1. The patient has a history of osteoarthritis. She does have some changes in her knees, back as well as her hips. Has limited movement in her hips. The patient is not being treated for rheumatoid arthritis. 2. Height 5 feet 4 inches, weight 136 pounds, BMI is 34.1. 3. Vital signs: Blood pressure is 135/60, heart rate 112, respiratory rate 16, room air saturation 96%, temperature 98.1. 4. Pain intensity 10/10. 5. Fall history: The patient has not fallen since we saw her last. She does ambulate with use of a rolling walker. 6. Hypertension. The patient is being treated for hypertension. 7. Opioids greater than 6 weeks. The patient receives medication from one source the pain clinic. 8. Risk assessment tool, [place] [address] PAIN MANAGEMENT CONSULTATION Name: ROC ARMANDO Room: [facility]#: [id number] Admission: 06/21/19 Attend Phys: Anant Blair MD Discharge: Date of : 43 Report #: [id number] 9. Functional assessment tool. 10. Recreational drug use. The patient denies use of recreational drugs. 11. Tobacco: The patient denies use of tobacco. 12. Alcohol. The patient denies use of alcoholic beverages. PHYSICAL EXAMINATION: GENERAL: The patient is a well-developed, well-nourished female. She speaks fluent Slovak. Her is present as well as the seismic interpreter. Questions were sought and answered. HEENT: Normocephalic, atraumatic. Extraocular eye muscles intact. Sclerae nonicteric. The patient is wearing glasses. NECK: Without adenopathy or JVD, somewhat limited neck movement secondary to arthritic changes. MUSCULOSKELETAL: The patient has muscle strength judged to be 4/5 for the major muscle groups in the upper extremity. The patient has muscle strength 3+/5 in her left arm. Has some pain and discomfort in the shoulder. Unable to lift it higher than parallel to the horizon. Some difficulty moving because of the rigidity of her hips. Has pain and discomfort in the area of the left as well as the right posterior superior iliac spine area to palpation. IMPRESSION: 1. Chronic knee pain and back pain. 2. Hypertension. 3. Depression. 4. Lumbar radicular history. 5. Components of left sciatic pain in the past. 6. Complex medical management with opioid medications. 7. Carpal tunnel syndrome, by history. 8. Degenerative joint disease. 9. 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 10. Gastroesophageal reflux. 12. Hyperlipidemia. 13. Prediabetes. 14. Spondylolisthesis. RECOMMENDATIONS: We discussed treatment options with the patient and with her . Risks and benefits of injections with steroids were discussed. They include possibility of infection, possibility of worsening of pain, possibility of no improvement in pain and the patient elects to proceed. PROCEDURE NOTE: The patient was taken to the procedure area. She was then assisted in getting on the examination table. She was placed in the right lateral decubitus position. Her left shoulder was then evaluated and a trigger point was noted in the area of the posterior deltoid area. Palpation in this area does reproduce a component of the pain, which the patient has been complaining of. The patient was then sterilely prepped with a chlorhexidine [address] [place] [address] PAIN MANAGEMENT CONSULTATION Name: ROC ARMANDO Room: [facility]#: [id number] Admission: 06/21/19 Attend Phys: Anant Blair MD Discharge: Date of : 43 Report #: [id number] solution. This was allowed to dry. A 25-gauge needle was then advanced into the area of the trigger point. The patient states that this did reproduce her trigger point. Aspiration was negative. A total of 40 mg of triamcinolone and 6 mL of 0.5% bupivacaine was injected. The patient tolerated the procedure well. The lower back area was then identified and trigger points were noted in the left and right posterior superior iliac spine areas. The patient was then placed on the bed in the prone position. Her back was sterilely prepped with a chlorhexidine solution and allowed to dry. A 25-gauge needle was then advanced into the left posterior superior iliac spine area near the gluteus jacob and latissimus dorsi. The patient states this did reproduce her discomfort. Aspiration was negative. Total of 8 mL of 0.5% bupivacaine and 40 mg of Depo-Medrol was injected. The contralateral side was treated in a like fashion. The right side was then infiltrated with 0.25% bupivacaine. A 25-gauge needle was then advanced into the area of the gluteus ajcob and latissimus dorsi. Aspiration was negative. Total of 6 mL of 0.5% bupivacaine and 40 mg of Depo-Medrol was injected. The patient tolerated the procedure well. There were no complications. She remained in the Pain Clinic for an appropriate amount of time. A script for her medications of Butrans 10 mcg q. 7 days has been renewed. The patient will call us if she has any concerns. We would like to thank you for letting us participate in her care. We hope she continues to improve. By: 1356 13N. Armando Blair MD /CARRIE
== END | disposition home or self-care (01) ==
LOC: M.PC 04:53
DX: M79.18 Myalgia, other site (principal); G89.29 Other chronic pain; M54.5 Low back pain; I10 Essential (primary) hypertension; F32.9 Major depressive disorder, single episode, unspecified; E78.5 Hyperlipidemia, unspecified; M19.90 Unspecified osteoarthritis, unspecified site; K21.9 Gastro-esophageal reflux disease without esophagitis; M43.10 Spondylolisthesis, site unspecified; Z88.8 Allergy status to other drugs, medicaments and biological substances; Z79.899 Other long term (current) drug therapy

== ENCOUNTER → 2019-09-13 | Outpatient (CLI) | payer MEDICARE, OTHER ==
--- NOTE | ~2019-09-13 | PAINCON ---
[facility] [address] [place] [address] PAIN MANAGEMENT CONSULTATION Name: ROC ARMANDO Room: [facility] SITA AndreaVictoria#: [id number] Admission: 09/13/19 Attend Phys: Anant Blair MD Discharge: Date of : 43 Report #: [id number] THIS REPORT FOR: //name// CC: Anant Siddiqi DATE OF SERVICE: 09/13/2019 CHIEF COMPLAINT: Shoulder pain and low back pain. "I hurt all over." HISTORY: The patient is a 74-year-old female who has been followed in the pain clinic. She has a history of significant arthritis. It involves her shoulders, hips and most of her other joints. She is having pain, which she describes as all over. There is an counter dish carrier with her. She speaks fluent Jamaican. The patient states that she is having pain in her shoulders, back, neck and limited by this discomfort. She has undergone trigger point injections in the past and found that these were helpful. Rates her pain today as an 8/10. She continues to have some pain in her knees, which are very bothersome. Her knees were replaced greater than 20 years ago. Notes that walking, sitting, standing, bending, and lifting are problematic. Feels that her medication as well as rest can provide some benefit. The patient was using gabapentin. She did have a period of time where she was out of the gabapentin medication and did note that there was an improvement with this medication. ALLERGIES: RELAFEN CAUSED HALLUCINATIONS AND TRAMADOL CAUSED VERTIGO. The patient feels that TIZANIDINE cause her to feel somewhat dizzy. MEDICATIONS: Amlodipine 5 mg, Butrans patch 15 mg, Duloxetine 60 mg, losartan 100 mg, Zanaflex 150 mg, Zocor 20 mg, tizanidine has been used in the past, stopped secondary to dizziness. PAIN CLINIC ASSESSMENT/PQRS: 1. The patient has a history of osteoarthritis. She has had some changes in her knees. She has had knee replacements. Has problems with her hips. Has very limited movement in her hips. She is not being treated for rheumatoid arthritis. 2. Height 5 feet 4 inches, weight 135 pounds, BMI 34.7. 3. Blood pressure 155/62, heart rate 111, respiratory rate 16, room air saturation 96%, and temperature 98.1. 4. Pain intensity is 8/10. 5. Fall history: The patient has not fallen in the last 3 months. 6. Blood thinner. The patient is not on a blood thinning medication. 7. Opioids greater than 6 weeks. The patient received medication from one source, the pain clinic. 8. Risk assessment tool, low for opioid use. 9. Functional assessment tool, [place] [address] PAIN MANAGEMENT CONSULTATION Name: ROC ARMANDO Room: [facility]#: [id number] Admission: 09/13/19 Attend Phys: Anant Blair MD Discharge: Date of : 43 Report #: [id number] 10. Recreational drug use. The patient denies use of recreational drugs. 11. Tobacco: The patient denies use of tobacco. 12. Alcohol. The patient denies use of alcoholic beverages. PHYSICAL EXAMINATION: GENERAL: The patient is a well-developed, well-nourished female. She is accompanied by her who speaks fluent Jamaican. She is also accompanied by an counter dish carrier. Questions were sought and answered. HEENT: Normocephalic, atraumatic. Extraocular eye muscles intact. Sclerae nonicteric. The patient is wearing glasses. NECK: Without adenopathy or JVD. The patient has limited movement of her neck secondary to the arthritic changes in her neck. Has pain. MUSCULOSKELETAL: The patient has pain and discomfort in the left as well as in the right shoulder area. Areas in the posterior deltoid on the left and the right shows signs of soreness and trigger points. The patient has muscle strength 3+/5 for the left and right arm. 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 The patient is unable to lift her arms higher than horizon. Difficulty moving. The patient needs help and assistance in going from a standing position with her walker with wheels to getting on the examination table. Unable to sit up in usual manner. The patient's trunk is semirigid and the patient has quite a bit of difficulty sitting up. Has pain and discomfort in the left and right posterior superior iliac spine areas. Palpation in these areas reproduce trigger points in both sides, which has been found in previous visits. IMPRESSION: 1. Chronic pain involving the knees and back. 2. Pain in the left and right deltoid areas. 3. Pain in the low back area in the left and right posterior superior iliac areas. 4. History of lack of left sciatic pain in the past. 5. Lumbar radicular history. 6. Depression. 7. Hypertension. 8. History of carpal tunnel syndrome. 9. Complex medical management using opioid medications. 10. Degenerative joint disease. 11. Fusion of the joints of her hips. 12. Gastroesophageal reflux. 13. Hyperlipidemia. 14. Prediabetes. 15. Spondylolisthesis. RECOMMENDATIONS: We discussed treatment options with the patient and her . Possible complications of the procedure, which could include increased muscle soreness, bleeding, infection were reviewed [place] [address] PAIN MANAGEMENT CONSULTATION Name: ROC ARMANDO [id number] Admission: 09/13/19 Attend Phys: Anant Blair MD Discharge: Date of : 43 Report #: [id number] proceed. PROCEDURE NOTE: The patient was taken to the procedure area. She was then assisted in getting on examination table. The patient was placed in the right lateral decubitus position. Her back was sterilely prepped in the left and right posterior superior iliac spine areas. Trigger points were noted. A 25-gauge needle was then advanced on the left posterior superior iliac spine area near the gluteus jacob and latissimus dorsi. Aspiration was negative. A total of 20 mg Depo-Medrol with 10 mg triamcinolone was injected in this area. The right trigger point area was identified. A 25-gauge needle was then advanced into the area near the gluteus jacob and latissimus dorsi. Aspiration was negative. A total of 40 mg Depo-Medrol with 20 mg triamcinolone was injected. The patient tolerated the second trigger point well. The third trigger point was performed in the left deltoid area. Aspiration was negative after this area had been sterilely cleansed and allowed to dry with a chlorhexidine solution. Aspiration was negative. A total of 20 mg Depo-Medrol with 20 mg triamcinolone was injected. The patient tolerated the third trigger point well. There were no complications. She remained in the Pain Clinic for an appropriate amount of time. A script for her medications have been rewritten. She will continue with gabapentin 100 mg at bedtime as well as Butrans 10 mg ____ 7 days apply to her skin. She will call us if she has any concerns. We would like to thank you for letting us participate in her care. We hope she continues to improve. By: [id number]. Armando Blair MD /nt
== END | disposition home or self-care (01) ==
LOC: M.PC 04:49
DX: M54.5 Low back pain (principal); M25.512 Pain in left shoulder; M25.511 Pain in right shoulder; M79.18 Myalgia, other site; G89.29 Other chronic pain; M25.561 Pain in right knee; M25.562 Pain in left knee; I10 Essential (primary) hypertension; E78.5 Hyperlipidemia, unspecified; M19.90 Unspecified osteoarthritis, unspecified site; F32.9 Major depressive disorder, single episode, unspecified; K21.9 Gastro-esophageal reflux disease without esophagitis; R73.03 Prediabetes; Z79.891 Long term (current) use of opiate analgesic; Z79.899 Other long term (current) drug therapy; Z98.890 Other specified postprocedural states; Z88.8 Allergy status to other drugs, medicaments and biological substances

== ENCOUNTER → 2020-03-08 | Outpatient (CLI) | payer MEDICARE, OTHER ==
--- NOTE | 2020-03-21 15:49 | PAINCON ---
[address] [address] PAIN MANAGEMENT CONSULTATION Name: ROC ARMANDO [id number] Admission: 03/08/20 Attend Phys: Anant Blair MD Discharge: Date of : 43 Report #: [id number] THIS REPORT FOR: //name// cc: Rocky Siddiqi MD, Richard MD ~ THIS REPORT FOR: //name// CC: Anant Siddiqi DATE OF SERVICE: 03/08/2020 CHIEF COMPLAINT: Chronic back pain. PRIMARY CARE PHYSICIAN: Rocky Siddiqi MD An medical biller coder was present throughout the interview. HISTORY: The patient is a 75-year-old female. She is complaining of pain and discomfort in her left hip. She has pain in her left shoulder as well. She rates her pain as an 8-9/10. Notes that with the weather changes this has been more problematic. She struggles to comb her hair. She has a frozen shoulder. She is accompanied by her . She has an medical biller coder. The patient would like an injection in the left hip and shoulder. ALLERGIES: RELAFEN CAUSED HALLUCINATIONS AND TRAMADOL CAUSED VERTIGO. THE PATIENT FEELS THAT TIZANIDINE CAUSE HER TO FEEL SOMEWHAT DIZZY. CURRENT MEDICATIONS: Amlodipine 5 mg, Butrans patch 15 mg, Duloxetine 60 mg, losartan 100 mg, Zanaflex 150 mg, Zocor 20 mg, tizanidine has been used in the past, stopped secondary to dizziness. PAIN CLINIC ASSESSMENT/PQRS: 1. The patient has a history of osteoarthritis. Has some changes in her knees. Has had knee replacements. The patient has problems with her hips as well. Very limited movement in her hips. She is not being treated for rheumatoid arthritis. 2. Height 5 feet 4 inches, weight 129 pounds, BMI is 32.5. 3. Vital signs: Blood pressure 115/68, heart rate 112, respiratory rate 16, room air saturation 96%, temperature 99.2. 4. Pain intensity 8-9/10. 5. Fall history: The patient has not fallen in the last 3 months. The patient walks with a walker. 6. Blood thinner. The patient is not on a blood thinning medication. 7. Opioids greater than 6 weeks. The patient receives medication from [place] [address] PAIN MANAGEMENT CONSULTATION Name: NAKUL ARMANDOILIA Room: [facility]#: [id number] Admission: 03/08/20 Attend Phys: Anant Blair MD Discharge: Date of : 43 Report #: [id number] 8. Risk assessment tool, low for opioid use. 9. Functional assessment tool. 10. Recreational drug use. The patient denies use of recreational drugs. 11. Tobacco: The patient denies use of tobacco. 12. Alcohol. The patient denies use of alcoholic beverages. PHYSICAL EXAMINATION: GENERAL: The patient is a well-developed, well-nourished female. She is accompanied by her who speaks fluent Georgian. She also is accompanied by an medical biller coder. Questions were sought and answered. HEENT: Normocephalic, atraumatic. Extraocular eye muscles intact. NECK: Without adenopathy or JVD. The patient has limited movement of her neck secondary to arthritic changes in her neck. MUSCULOSKELETAL: The area in the posterior deltoid area, has trigger points noted. The patient also has some soreness in the hip area. The patient is unable to lift her arms higher than horizon. Has difficulty moving her arms. The patient walks with a wheeled walker. She is somewhat unstable on her feet. The patient has some difficulty getting up. Require some assistance. Has trigger points in the shoulder as well as in the hip. IMPRESSION: 1. Chronic pain involving the knees and back. The patient has left and right deltoid discomfort. 2. Pain in the low back and in the iliac area. 3. History of left sciatic nerve pain in the past. 4. Lumbar radicular pain history. 5. Depression. 6. Hypertension. 7. History of carpal tunnel syndrome. 8. Complex medical management using opioids. 9. Degenerative joint disease. 10. Fusion of the joints in her hips. 11. Gastroesophageal reflux. 12. Hyperlipidemia. 13. Prediabetes. 14. Spondylolisthesis. RECOMMENDATIONS: We discussed treatment options with the patient. The patient has tolerated the injections in the past. She has found them helpful. She rates her pain as an 8-9/10. We explained to the patient that given the COVID-19 virus that she might find it more problematic to recover from an infection from the COVID-19 virus. Given that she has a number of comorbidities. I think to wait and consider an injection in the future might be more helpful. After she has had an injection to help with the virus. A script for Nicole has been provided. The patient will also continue with gabapentin 100 mg at bedtime. She will continue with hydrocodone 5 mg 1 p.o. every [address] [address] PAIN MANAGEMENT CONSULTATION Name: ROC ARMANDO Room: [facility]#: [id number] Admission: 03/08/20 Attend Phys: Anant Blair MD Discharge: Date of : 43 Report #: [id number] hours. She will also continue with diclofenac gel to the affected shoulders bilaterally. <ELECTRONICALLY SIGNED> By: Anant Blair MD 03/21/20 1549 [id number] [id number] Blair MD /CARRIE
== END ==
LOC: M.PC 02-09 11:00
DX: M54.16 Radiculopathy, lumbar region (principal); M43.16 Spondylolisthesis, lumbar region; E78.5 Hyperlipidemia, unspecified; R73.03 Prediabetes; K21.9 Gastro-esophageal reflux disease without esophagitis; M19.90 Unspecified osteoarthritis, unspecified site; M24.652 Ankylosis, left hip; M24.651 Ankylosis, right hip; M25.562 Pain in left knee; I10 Essential (primary) hypertension; F11.20 Opioid dependence, uncomplicated; F32.9 Major depressive disorder, single episode, unspecified; Z87.39 Personal history of other diseases of the musculoskeletal system and connective tissue; Z98.890 Other specified postprocedural states; Z88.1 Allergy status to other antibiotic agents; Z88.2 Allergy status to sulfonamides; Z91.048 Other nonmedicinal substance allergy status; Z88.8 Allergy status to other drugs, medicaments and biological substances; Z79.899 Other long term (current) drug therapy

== ENCOUNTER → 2021-09-10 | Outpatient (CLI) | payer MEDICARE, OTHER ==
[~2021-09-10] MED LIST changes: +BUTRANS1 EACH INTRADERM
== END | disposition home or self-care (01) ==
LOC: M.PC 10:13
PROVIDERS: ATTEND Anesthesiology Pain Medicine
DX: M79.18 Myalgia, other site (principal); M54.59 Other low back pain; G89.29 Other chronic pain; M25.561 Pain in right knee; M25.562 Pain in left knee; I10 Essential (primary) hypertension; E78.5 Hyperlipidemia, unspecified; F32.9 Major depressive disorder, single episode, unspecified; K21.9 Gastro-esophageal reflux disease without esophagitis; Z98.890 Other specified postprocedural states; Z96.653 Presence of artificial knee joint, bilateral; Z79.899 Other long term (current) drug therapy; Z87.891 Personal history of nicotine dependence; Z88.8 Allergy status to other drugs, medicaments and biological substances